=== PATIENT | female | born 1985 | race Caucasian/White ===

== ENCOUNTER 2016-10-24 15:45 | Emergency (ER) | payer OTHER ==
[~2016-10-24] VITALS: Ht 149.9 cm; Wt 55.5 kg
[~2016-10-24 15:45] MED LIST: CETI10CA PO
[2016-10-24 16:03] VITALS: BP 122/81; PULSE 74; RESP 16; O2SAT 99
--- NOTE | 2016-10-24 16:40 | ED.REPORT ---
HPI-Abd Pain F Under 40 Date of Service Oct 24, 2016 ED Provider: Dr. Alfonso Loyd 31 year old female with history of ectopic who presents to the ER with 2-3 weeks of sharp LLQ pain. Pt was seen for this and was started on a course of Doxycycline for uterine infection. This cleared her symptoms, but then after a week her pain returned as well as fevers, chills, nausea and vomiting x1 for 2-3 days. She also had a syncopal episode today and mild non bloody diarrhea. She has taken Ibuprofen. Pt denies vaginal discharge, flank pain and dysuria. At her previous visit pt had an ultrasound, pelvic exam and tested negative for chlamydia and gonorrhea. Nursing Notes Stated Complaint: FAINTING, ABDOMINAL PAIN Chief Complaint: Female Abdominal Pain Nursing Notes Reviewed: Yes Allergies: Coded Allergies: No Known Allergies (Unverified Allergy, Unknown, 10/24/16) Uncoded Allergies: SULFA (Adverse Reaction, Unknown, "sensitive", 12/19/15) Scheduled PRN Cetirizine HCl (Zyrtec) 10 Mg Capsule 10 MG PO HS PRN PRN allergies General Time Seen by MD: 16:40 Chief Complaint Abdominal pain Hx Obtained From: Patient, Other family... (Mother) Arrived By: Walk-in Sudden in Onset?: No Onset Occurred: More than a week ago... Symptom Duration: Since onset Location: : LLQ Quality: Painful Severity: Current: Moderate Associated with: Reports: Fever, Nausea, Vomiting, Denies: Diarrhea Recent Healthcare: Recent doctor visit Similar Sx Previous: Yes Past Medical History Past Medical History Ectopic Past Surgical History Reports: Smoking History Current Every Day Smoker Social History Alcohol Use: "Social" Drug Use: THC Ambulatory Status Independent Review of Systems Basic Review of Systems Eyes: Vision NL, No discharge ENT: Hearing NL, No pain, No nasal congestion, No pharyngeal pain Neurologic: NL mental status, No weakness, No numbness Psychiatric: Normal thought content Constitutional: Reports: Chills, Fever Respiratory: Denies: Shortness of breath Cardiovascular: Denies: Chest pain GI: Reports: Abdominal pain, Diarrhea, Nausea, Vomiting, Denies: Hematochezia Female: Denies: Dysuria, Flank pain, Vaginal bleeding - abnl, Vaginal discharge Complete sys rev & neg: except as marked. Neurologic: Reports: Syncope Physical Exam Initial Vital Signs Vital Signs (First) Date Time Temp Pulse Resp B/P Pulse Ox O2 Delivery O2 Flow Rate FiO2 10/24/16 16:03 36.8 74 16 122/81 99 Room Air Initial VS: Reviewed Head / Eyes: Atraumatic, Normocephalic, PERRL ENT: Mucous membranes moist, Conjunctiva normal, No scleral icterus Neck: Supple, Full range of motion Extremities: Vascular intact, Neuro intact, No swelling, No tenderness Skin: Warm, Dry, No cyanosis Neurologic: Alert, Oriented, Nonfocal Psychiatric: Mood/affect normal, Behavior normal, Normal thought content General/Constitutional: Awake, Alert Respiratory / Chest: Breath sounds NL, Breath sounds = bilat, No respiratory distress, No rales, No rhonchi, No wheezing Cardiovascular: Heart rate NL, Regular rhythm, Heart sounds NL, Peripheral circulation NL Abdomen: Soft L pelvic pain Back: Full range of motion, No CVA tenderness Female Genitourinary: Lace Mender present, Atraumatic, External genitalia NL, No bleeding, No discharge, Os closed, No adnexal mass Pelvic Exam: Positive: Cervical motion tend... (Mild) No cervical or vaginal discharge. Interpretation & Diagnostics Lab Results Interpretation Result Diagram: 10/24/16 1639 10/24/16 1639 Test 10/24/16 16:39 10/24/16 17:25 10/24/16 18:28 White Blood Count 8.3th/mm3 (3.8-10.1) Red Blood Count 4.41mil/mm3 (3.90-5.20) Hemoglobin 13.7g/dL (12.0-15.6) Hematocrit 41.8% (35.0-46.0) Mean Corpuscular Volume 94.8fL (81-100) Mean Corpuscular Hemoglobin 31.1pg (27.0-35.0) Mean Corpuscular Hemoglobin Concent 32.8% (32.0-37.0) Red Cell Distribution Width 12.2% (12.3-15.4) Platelet Count 236bil/L (150-400) Neutrophils (%) (Auto) 72.6% (40-74) Lymphocytes (%) (Auto) 20.1% (14-46) Monocytes (%) (Auto) 6.2% (4-12) Eosinophils (%) (Auto) 0.8% (0-5) Basophils (%) (Auto) 0.2% (0-3) Sodium Level 139mEq/L (134-144) Potassium Level 4.3mEq/L (3.5-5.2) Chloride Level 103mEq/L (97-108) Carbon Dioxide Level 22mmol/L (18-29) Blood Urea Nitrogen 11mg/dL (6-20) Creatinine 0.52mg/dL (0.57-1.00) Estimat Glomerular Filtration Rate 198mL/min (>59) Glucose Level 106mg/dL (60-99) Calcium Level 9.9mg/dL (8.5-10.1) Magnesium Level 2.2mg/dL (1.6-2.6) Total Bilirubin 0.4mg/dL (0.0-1.2) Aspartate Amino Transf (AST/SGOT) 21U/L (0-50) Alanine Aminotransferase (ALT/SGPT) 12U/L (0-32) Alkaline Phosphatase 67U/L (25-150) Total Protein 7.6g/dL (6.4-8.4) Albumin 4.5g/dL (3.4-5.0) Lipase 28U/L (13-60) Hold White Top Tube Received (Received) Hold Urine Received (Received) Re-Eval/Medical Decision Med Decision/Clinical Course Med Decision/Clinical Course: Recurrent pelvic pain, with cervical motion tenderness. Currently waiting ultrasound evaluation. Treated with Rocephin 500 mg IV, doxycycline 100 mg and 2 g of oral Flagyl. Care transferred to Dr. Richardson Discharge & Departure Referrals: Kishan Mcgrath MD (PCP) Care Transferred to: [facility] Transferred at: 19:00 Scribe Attestation Portions of this note were transcribed by Estefani Lynn. I, (Dr. Alfonso Loyd ) personally performed the history, physical exam and medical decision-making; I reviewed and confirmed the accuracy of the information in the transcribed note. Signed by: Estefani Lynn. [place], 10/24/2016, [id number] copies to: Kishan Mcgrath MD, Timothy S DO Oct 24, 2016 16:40 Estefani Lynn Oct 24, 2016 17:31
[2016-10-24 16:46] LABS: BASOPHILS % (AUTO) 0.2 % (0-3); EOSINOPHILS % (AUTO) 0.8 % (0-5); MONOCYTES % (AUTO) 6.2 % (4-12); Mean Corpuscular Hemoglobin 31.1 pg (27.0-35.0); Mean Corpuscular Volume 94.8 fL (81-100); NEUTROPHILS % (AUTO) 72.6 % (40-74); Platelet Count 236 bil/L (150-400)
[2016-10-24 17:09] VITALS: BP 128/83; PULSE 68; RESP 16; O2SAT 100
[2016-10-24 17:22] LABS: Magnesium 2.2 mg/dL (1.6-2.6)
[2016-10-24] MEDS ORDERED: 0.9% Sodium Chloride 1,000 ML IV ONE (17:40)
[2016-10-24] MEDS ORDERED: 0.9% Sodium Chloride 1,000 ML IV SCH (17:40)
[2016-10-24] MEDS ORDERED: CEFTRIAXONE IV ONE (18:15)
[2016-10-24] MEDS ORDERED: DEXTROSE 5% IV ONE (18:15)
[2016-10-24 19:52] LABS: APPEARANCE,URINE TURBID (CLEAR,HAZY); COLOR,URINE YELLOW (YELLOW)
[2016-10-24 19:53] LABS: OCCULT BLOOD,URINE NEGATIVE (NEGATIVE); PH,URINE >9.0 (5.0-8.0); UROBILINOGEN,URINE NORMAL (NORMAL)
[2016-10-24] MEDS ORDERED: DOXY100C43 PO (20:04)
--- NOTE | 2016-10-24 21:30 | DRSVH ---
PROCEDURE: US PELVIC SONOGRAM + TRANSVAGINAL SONOGRAM INDICATIONS: 31 year old woman with pelvic pain TECHNIQUE: Real-time scanning was performed of the pelvic organs, with image documentation. Additional endovagi nal scanning was necessary due to incomplete visualization of the adnexal and endometrial structures by transabdominal scanning. COMPARISON: [facility], US, US PELVIC+TRANSVAG+DOP, 09/17/2016, 16:16. FINDINGS: Transabdominal scanning: Limited scanning through the kidneys shows no hydronephrosis. No pathologi c free abdominal or pelvic fluid. There is debris within the bladder. Endovaginal scanning: Uterus: Uterus is normal in size at 10.7 x 3.3 x 4.3 cm. The endometrium measures 8.3 mm in combine d thickness. Ovaries: Right ovary measures 2.7 x 2.0 x 2.5 cm. Left ovary measures 3.2 x 1.7 x 2.9 cm. Ovaries dem onstrate normal echotexture with ovarian follicles bilaterally. There is normal blood flow to both ov karime. IMPRESSION: 1. Normal uterus and ovaries. 2. Note is made of debris within a nearly empty urinary bladder. Dictated by: Nubia Leblanc M.D. on 10/24/2016 at 21:14 Approved by: Nubia Leblanc M.D. on 10/24/2016 at 21:28
[2016-11-23] MEDS ORDERED: ONDA-54 PO (13:12)
== END 2016-10-24 20:10 | disposition home or self-care (01) ==
LOC: SED 16:35
DX: R10.2 Pelvic and perineal pain (principal); F17.200 Nicotine dependence, unspecified, uncomplicated
CPT/HCPCS: 36415; 76830; 76856; 80053; 81000; 81025; 83690; 83735; 85025; 87086; 87491; 87591; 96361; 96374; 96375; 99285; G0463; J0696; J1885; J7030

== ENCOUNTER 2016-11-26 12:31 | Day surgery (SDC) | payer OTHER ==
[~2016-11-26] VITALS: Ht 149.9 cm; Wt 56.7 kg
[~2016-11-26 12:31] MED LIST changes: -CETI10CA PO; +ONDA-54 PO; +Sodium Chloride LOK Flush 10 mL Syringe IV PRN; +fentaNYL-PF 50 mCg/mL 2 mL Inj IVPUSH PRN
[2016-11-26] MEDS: 0.9% Sodium Chloride 1,000 ML IV SCH ×3 (14:41→16:30)
[2016-11-26] MEDS ORDERED: TRAZ150T72 PO (15:15)
[2016-11-26 16:05] VITALS: BP 133/70; PULSE 88; RESP 18; O2SAT 100
--- NOTE | 2016-11-26 16:34 | PCM.ENDCOL ---
Colonoscopy Date of Service: November 26, 2016 Physician Lorenzo Monsivais MD Pre Procedure Diagnosis: Diarrhea Post Procedure Dx & Findings: Formed stools throughout the colon Procedure Colonoscopy PROCEDURE IN DETAIL: Prep poor; patient could not tolerate the second half of the prep. She vomited and dehydrated requiring IV fluids. After unremarkable rectal examination the Olympus video colonoscope was inserted patient's anal canal and was advanced to cecum. Landmarks were identified including the ileocecal valve. I was not able to see the appendiceal orifice because it was covered in stools. Is able to see partially a tunica-biloxi's foot. Scope was withdrawn systematically. Visualized colonic mucosa showed healthy shiny mucosa with normal healthy-appearing vasculature. Form stools noted throughout the colon. In the rectum retroflexion was done which showed hemorrhoids. Anal canal was inspected carefully on the way out and hemorrhoids noted. Impression Poor prep but no obvious colitis Suspect more of a constipation rather than diarrhea. Hemorrhoids Recommendation Repeat colonoscopy; however I am not sure if she is going to tolerate the prep. He only drank a bottle of it and became severely dehydrated and lightheaded. Presedation Assessment Risks and Benefits Informed consent was obtained from the patient after all risks and benefits including but not limited to drug reaction, infection, pain, bleeding, perforation, as well as alternatives were discussed. Patient monitoring Continuous pulse oximetry, cardiac monitoring, blood pressure monitoring, IV access, and oxygen at 2L per nasal cannula. Periprocedural Fentanyl: Fentanyl 200mcg Incrementally Midazolam: Midazolam 10mg Incrementally Complications There were no periprocedural complications identified. Post Procedure Plan Post Procedure Recommendations 1. Restrict activities today. 2. Resume normal activities in the morning. 3. Resume medications. 4. Patient informed of normal post procedure side effects as bloating, drowsiness, blood streaking in the stool. 5. average risk CRCS. If colon polyps come back as: -Hyperplastic- can repeat colonoscopy in 10 years -Tubular adenoma- repeat colonoscopy in 5 years -Tubulovillous/villous adenoma- repeat colonoscopy in 3 years -If any dysplasia- return to clinic as soon as possible 6. Please don't hesitate to call me with any questions. Lorenzo Monsivais MD November 26, 2016 16:34
[2016-11-26 16:35] VITALS: BP 126/70; PULSE 110; RESP 16; O2SAT 98
[2016-11-26 16:40] VITALS: BP 131/65; PULSE 101; RESP 16; O2SAT 98
[2016-11-26 16:45] VITALS: BP 131/74; PULSE 102; RESP 16; O2SAT 98
== END 2016-11-26 23:59 | disposition home or self-care (01) ==
LOC: END 12:31
PROVIDERS: ATTEND Internal Medicine
DX: R19.7 Diarrhea, unspecified (principal); R11.2 Nausea with vomiting, unspecified; K92.1 Melena; K64.9 Unspecified hemorrhoids; E86.0 Dehydration; T50.995A Adverse effect of other drugs, medicaments and biological substances, initial encounter
CPT/HCPCS: 45378; 99153; G0500; J7030